=== PATIENT | female | born 1930 | race Caucasian/White ===

== ENCOUNTER 2019-08-11 04:31 | Emergency (ER) | payer MEDICARE, BC ==
[~2019-08-11] VITALS: Ht 157.5 cm; Wt 55.2 kg
[2019-08-11] MEDS ORDERED: SYNTHROID50 MCG PO (04:56)
[2019-08-11 05:36] LABS: HEMATOCRIT 39.3 % (37.0-47.0); HEMOGLOBIN 13.1 g/dl (12.0-16.0); IMMATURE GRANULOCYTES 0.3 % (0.0-5.0); MEAN CELL VOLUME 91.6 fL CALC (80.0-100.0); MEAN CORPUSCULAR HGB 30.5 pG CALC (26.0-32.0); MEAN CORPUSCULAR HGB CONC 33.3 g/L CALC (32.0-36.0); NEUT# 4.61 thou/uL (2.00-7.15); RED BLOOD COUNT 4.29 mill/uL (4.20-5.60); RED CELL DISTRI WIDTH 12.8 % (11.5-15.5)
[2019-08-11 05:51] LABS: ALBUMIN 4.2 g/dL (3.2-5.0); ALKALINE PHOSPHATASE 92 u/l (38-126); ANION GAP 14 (6-22 (CALC)); BILIRUBIN, TOTAL 0.3 mg/dL (0.0-1.4); BUN 15 mg/dL (8-23); BUN/CREATININE RATIO 17 (12-20 (CALC)); CARBON DIOXIDE 25 mmol/l (22-30); CHLORIDE 106 mmol/l (95-108); CREATININE 0.9 mg/dL (0.5-1.0); GFR 59 ML/MIN (>=60 (CALC)); GFR FOR AFR.AMER. > 60 ML/MIN (>=60 (CALC)); POTASSIUM 4.2 mmol/l (3.5-5.1); SGOT/AST 33 u/l (9-36); SODIUM 140 mmol/l (137-146); TOTAL PROTEIN 7.4 g/dL (6.3-8.2)
[2019-08-11 05:53] LABS: MAGNESIUM 2.2 mg/dL (1.6-2.3)
[2019-08-11 06:22] LABS: TSH, 3RD GENERATION 2.99 uIU/mL (0.47 - 4.68)
[2019-08-11] MEDS ORDERED: TRAMADOL HCL50 MG PO (06:44)
[2019-08-11] MEDS ORDERED: STERAPRED DS10 MG PO (06:44)
[2019-08-11 07:20] VITALS: BP 135/65
== END 2019-08-11 07:20 | disposition home or self-care (01) ==
LOC: ED 04:31
PROVIDERS: Family Medicine
DX: R51 Headache (principal)